=== PATIENT | male | born 1985 | race Caucasian/White ===

== ENCOUNTER 2018-12-28 23:47 | Emergency (ER) | payer SELFPAY ==
[~2018-12-28] VITALS: Ht 162.6 cm; Wt 108.0 kg
[2018-12-28 23:53] VITALS: BP 147/83
--- NOTE | 2018-12-29 00:25 | NUR ---
BIB SELF FOR RT LOWER LEG REDNESS AND SWELLING SINCE YESTERDAY. SKIN TO AREA IS WARM, RED, SCANT AMOUNT OF DRAINAGE AT THIS TIME. PT AWAKE AND ALERT, SITTING IN BED.
[2018-12-29] MEDS ORDERED: VANCOMYCIN 1,000 MG in DEXTROSE 5% 250 ML IV ONE (00:35)
[2018-12-29] MEDS ORDERED: VANCOMYCIN 1,000 MG VIAL ONE (00:56)
[2018-12-29 03:04] VITALS: BP 147/83
--- NOTE | 2018-12-29 03:06 | NUR ---
Patient discharged with v/s stable. Written and verbal after care instructions given and explained. Patient alert, oriented and verbalized understanding of instructions. Ambulatory with steady gait. All questions addressed prior to discharge. ID band removed. Patient advised to follow up with PMD. Rx of DOXTCYCINE AND BACTRIM given. Patient educated on indication of medication including possible reaction and side effects. DISCARGE AND INSTRUCTIONS GIVEN TO PT BY ER MD. Opportunity to ask questions provided and answered.
== END 2018-12-29 03:01 | disposition home or self-care (01) ==
LOC: MED 23:47
DX: L03.116 Cellulitis of left lower limb (principal)
CPT/HCPCS: 36415; 87040; 96365; 99283; J3370